=== PATIENT | male | born 1995 | race Caucasian/White ===

== ENCOUNTER → 2019-11-11 | Outpatient (REF) | payer BC | LOC: M LAB REF 11:50 | PROVIDERS: ATTEND Physician Assistant Medical | DX: J02.9 Acute pharyngitis, unspecified (principal) ==

== ENCOUNTER 2020-09-15 17:29 | Emergency (ER) | payer OTHER ==
[~2020-09-15] VITALS: Ht 182.9 cm; Wt 90.2 kg
[2020-09-15] MEDS ORDERED: IBUP200C25 PO (17:43)
[2020-09-15] MEDS ORDERED: PANTOPRAZOLE 40MG VIAL (C9113 PER 1) IV ONE (18:45)
[2020-09-15 19:24] LABS: EOS # 0.1 10^3/uL (0.0-0.5); EOS % 1.2 % (0.0-3.0); HEMATOCRIT 47.8 % (42.0-52.0); HEMOGLOBIN 16.2 g/dl (13.5-17.5); LYMPH # 1.4 10^3/uL (1.5-5.0); LYMPH % 34.7 % (24.0-44.0); MEAN CORPUSCULAR HGB CONC 33.9 g/dl (32.0-36.5); MEAN CORPUSCULAR VOLUME 85.7 fl (80.0-96.0); MONO # 0.6 10^3/uL (0.0-0.8); MONO % 15.5 % (0.0-5.0); NEUTROPHILS # 1.9 10^3/uL (1.5-8.5); NEUTROPHILS % 47.4 % (36.0-66.0); PLATELET COUNT, AUTOMATED 179 10^3/uL (150-450); RED BLOOD COUNT 5.58 10^6/uL (4.30-6.10); WHITE BLOOD COUNT 4.1 10^3/uL (4.0-10.0)
[2020-09-15] MEDS ORDERED: ISOVUE-370 76% 100ML VIAL As Ordered ONE (19:30)
--- NOTE | 2020-09-15 19:34 | REP ---
INDICATION: epigastric abd pain. COMPARISON: No comparison study. TECHNIQUE: Two views.. FINDINGS: The lungs are well inflated and free of infiltrate. The pleural angles are sharp. The heart size is normal. Pulmonary vasculature is not increased. No significant bony abnormality is seen. There is a mild pectus excavatum. IMPRESSION: Negative chest x-ray. <Electronically signed by Gilles Garcia > 09/15/201929
[2020-09-15 19:55] LABS: ALBUMIN 4.3 GM/DL (3.2-5.2); ALT/SGPT 22 U/L (12-78); BILIRUBIN,DIRECT 0.2 MG/DL (0.0-0.2); BILIRUBIN,TOTAL 0.6 MG/DL (0.2-1.0); CK-MB VALUE MASS < 1.0 NG/ML (<3.6); CPK CREATINE PHOSPHOKINASE 73 U/L (39-308); LIPASE 105 U/L (73-393); MB/CK RELATIVE INDEX 1.37 (< OR =4); TOTAL PROTEIN 8.1 GM/DL (6.4-8.2); TROPONIN I < 0.02 NG/ML (< 0.10)
--- NOTE | 2020-09-15 20:01 | REPVR ---
PROCEDURE INFORMATION: Exam: CT Abdomen And Pelvis With Contrast Exam date and time: 09/15/2020 7:32 PM Age: 25 years old Clinical indication: Abdominal pain; Epigastric; Additional info: Epigastric abd pain, reported hematochezia, diarrhea TECHNIQUE: Imaging protocol: Computed tomography of the abdomen and pelvis with intravenous contrast. Axial, coronal and sagittal reformatted images were created and reviewed. Radiation optimization: All CT scans at this facility use at least one of these dose optimization techniques: automated exposure control; mA and/or kV adjustment per patient size (includes targeted exams where dose is matched to clinical indication); or iterative reconstruction. Contrast material: ISOVUE 370; Contrast volume: 100 ml; Contrast route: INTRAVENOUS (IV); COMPARISON: No relevant prior studies available. FINDINGS: Liver: Unremarkable. Gallbladder and bile ducts: No radiodense gallstones. No biliary ductal dilatation. Pancreas: Unremarkable. Spleen: Unremarkable. Adrenal glands: Normal. No mass. Kidneys and ureters: No mass. No radiodense calculi. No hydronephrosis. Stomach and bowel: Small focus of hyperattenuation along the posterior aspect of the gastric antrum (axial image 37). Nondilated, fluid-filled, mildly hyperemic loops of small bowel, some of which appear mildly thickened. No obstruction. No bowel wall thickening. No pneumatosis. Appendix: Normal. Intraperitoneal space: No free fluid. No organized fluid collection. No free air. Vasculature: Unremarkable. No aneurysm. Lymph nodes: Small mesenteric lymph nodes, likely reactive. No pathologically enlarged lymph nodes. Urinary bladder: Unremarkable as visualized. Reproductive: Unremarkable. Bones/joints: No acute osseous abnormality. Soft tissues: Unremarkable. IMPRESSION: 1. Nondilated, fluid-filled, mildly hyperemic loops of small bowel, some of which appear mildly thickened. Query nonspecific gastroenteritis. 2. Small focus of hyperattenuation along the posterior aspect of the gastric antrum, possibly blood products. Clinically indicated, endoscopy may be obtained for further evaluation. 3. Additional findings, as above. Electronically signed by: Richard Louie On 09/15/2020 20:00:50 PM
[2020-09-15] MEDS ORDERED: CARA1TAB6 PO (20:24)
[2020-09-15] MEDS ORDERED: PROT1TAB2 PO (20:24)
[2020-09-15 20:42] VITALS: BP 126/86
--- NOTE | 2020-09-15 22:14 | ECGEPIP ---
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
--- NOTE | 2020-09-17 09:11 | ED PDOC ---
Post-Departure Follow-Up dr prince faxed formal report of ct abd/p for fu Joshua Brito MD Sep 17, 2020 09:11
== END 2020-09-15 20:39 | disposition home or self-care (01) ==
LOC: M ED 17:29
DX: K52.9 Noninfective gastroenteritis and colitis, unspecified (principal); K92.2 Gastrointestinal hemorrhage, unspecified; R10.13 Epigastric pain
CPT/HCPCS: 36415; 71046; 74177; 80047; 80076; 81001; 82550; 82553; 83690; 84484; 85025; 93005; 96374; 99284; C9113; Q9967

== ENCOUNTER → 2021-11-15 | Outpatient (REF) | payer OTHER ==
[~2021-11-15] MED LIST: CARA1TAB6 PO; IBUP200C25 PO; PROT1TAB2 PO
[2021-11-15 10:36] LABS: RSV AMPLIFICATION NEGATIVE (NEGATIVE)
== END ==
LOC: M LAB REF 09:24
PROVIDERS: ATTEND Pediatrics
DX: Z03.818 Encounter for observation for suspected exposure to other biological agents ruled out (principal)

== ENCOUNTER → 2025-11-01 | Outpatient (REF) | payer BC, OTHER | LOC: M SMT 15:20 | PROVIDERS: ATTEND Urology | DX: Z30.2 Encounter for sterilization (principal) ==